=== PATIENT | male | born 1990 | race African-American/Black ===

== ENCOUNTER 2023-07-16 08:53 | Emergency (ER) | payer MEDICARE, MEDICAID ==
[~2023-07-16] VITALS: Ht 182.9 cm; Wt 81.0 kg
[2023-07-16 09:00] VITALS: O2SAT 100
[2023-07-16] MEDS ORDERED: KETOROLAC 30MG/ML VIAL IV ONE (09:15)
[2023-07-16] MEDS ORDERED: SODIUM CHLORIDE 0.9% 1,000 ML IV ONE (09:15)
[2023-07-16 09:44] VITALS: TEMP 98.1
[2023-07-16 09:49] LABS: BASOPHILS % 0.9 % (0.0-2.0); EOSINOPHILS % 0.8 % (0.0-5.0); HEMATOCRIT. 46.5 % (42.0-52.0); HEMOGLOBIN. 15.3 g/dL (14.0-18.0); MEAN CORPUSCULAR HEMOGLOBIN 28.4 pg (28.0-32.0); MEAN CORPUSCULAR HGB CONC 32.9 g/dL (31.0-37.0); MEAN CORPUSCULAR VOLUME 86.1 fL (80.0-94.0); MEAN PLATELET VOLUME 9.5 fl (7.4-10.4); MONOCYTES % 7.3 % (2.0-8.0); PLATELET 147 x1000/uL (130-400); RED CELL DISTRIBUTION WIDTH 15.1 % (11.6-14.6); WHITE BLOOD COUNT 3.4 x1000/uL (4.5-11.0)
[2023-07-16 10:19] LABS: CHLORIDE 106 mEq/L (98-107); INDEX HEMOLYSI 4 (1-3); INDEX ICTERIC 1 (1-4); INDEX LIPEMIC 1 (1-3); SODIUM 138 mEq/L (136-145)
[2023-07-16 10:23] LABS: CALCIUM 9.4 mg/dL (8.5-10.1)
[2023-07-16 10:30] LABS: ALANINE AMINOTRANSFERASE 31 IU/L (13-61); ALBUMIN 4.3 g/dL (3.4-5.0); ASPARTATE AMINOTRANSFERASE 28 IU/L (15-37); BILIRUBIN TOTAL 0.4 mg/dL (0.1-1.0); CARBON DIOXIDE 25 mEq/L (21-32); CREATININE 1.2 mg/dL (0.6-1.3); GLUCOSE 113 mg/dL (70-105); NT PRO B-TYPE NATRIURETIC PEP 37 pg/mL (5-125); TROPONIN I HIGH SENSITIVITY 5 ng/L (<78); UREA NITROGEN BLOOD 14 mg/dL (7-21)
[2023-07-16 10:46] LABS: POTASSIUM 4.2 mEq/L (3.5-5.1)
[2023-07-16 12:02] LABS: TROPONIN I HIGH SENSITIVITY 4 ng/L (<78)
[2023-07-16 12:14] VITALS: BP 127/67; PULSE 65; RESP 18
[2023-07-16] MEDS ORDERED: IBUP-2029 MT (12:15)
== END 2023-07-16 12:49 | disposition home or self-care (01) ==
LOC: ER 08:53
DX: R53.1 Weakness (principal); F17.200 Nicotine dependence, unspecified, uncomplicated; F12.10 Cannabis abuse, uncomplicated
CPT/HCPCS: 99285; 96374; 71045; 96361; 80053; 82962; 83880; 85025; 84484; 36415; 93005; J1885; J7030

== ENCOUNTER 2023-07-29 09:11 | Emergency (ER) | payer MEDICARE, MEDICAID ==
[~2023-07-29] VITALS: Ht 188 cm; Wt 93.0 kg
[~2023-07-29 09:11] MED LIST: IBUP-2029 MT
[2023-07-29 09:36] VITALS: BP 128/66; PULSE 67; RESP 16; TEMP 98.6; O2SAT 99
[2023-07-29] MEDS ORDERED: IBUP-2029 MT (10:41)
== END 2023-07-29 11:13 | disposition home or self-care (01) ==
LOC: ER 09:11
DX: Z76.0 Encounter for issue of repeat prescription (principal); I31.9 Disease of pericardium, unspecified; F12.10 Cannabis abuse, uncomplicated
CPT/HCPCS: 99282